=== PATIENT | male | born 2000 | race Caucasian/White ===

== ENCOUNTER 2022-02-03 20:54 | Emergency (ER) | payer OTHER ==
[~2022-02-03] VITALS: Ht 165.1 cm; Wt 77.2 kg
--- NOTE | 2022-02-03 21:16 | PHYS DOC ---
Adult General HPI HPI Patient is an otherwise healthy 21-year-old male who presents with sore throat, headache, fever and body aches. States he is in the and went to an urgent care this morning was tested for flu and Covid which was negative. States he has had his Covid vaccinations. States he took some Tylenol earlier this morning. States he is eating and drinking normally for him. States he is making urine and stool normally for him. 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 Review of Systems Review of Systems Review of systems otherwise unremarkable except noted in HPI Physical Exam Physical Exam Constitutional: Well developed, well nourished, no acute distress, non-toxic appearance. [] HENT: Normocephalic, atraumatic, bilateral external ears normal, oropharynx moist, bilateral posterior oropharyngeal and tonsillar erythema, no oral exudates, nose normal. [] Eyes: conjunctiva normal, no discharge. [] Neck: Normal range of motion, no tenderness, supple, no stridor [] Cardiovascular: Sinus tachycardia Lungs & Thorax: Bilateral breath sounds clear to auscultation [] Abdomen: soft, no tenderness, no masses, no pulsatile masses. [] Skin: Warm, dry, no erythema, no rash. [] Extremities: No tenderness, no cyanosis, no clubbing, ROM intact, no edema. [] Neurologic: Alert and oriented X 3, no focal deficits noted. [] Psychologic: Affect normal, judgement normal, mood normal. [] EKG EKG [] Radiology/Procedures Radiology/Procedures [] Heart Score C/O Chest Pain: No Risk Factors: Risk Factors: DM, Current or recent (<one month) smoker, HTN, HLP, family history of CAD, obesity. Risk Scores: Risk Factors: DM, Current or recent (<one month) smoker, HTN, HLP, family history of CAD, obesity. Course & Med Decision Making Course & Med Decision Making Patient is a otherwise healthy 21-year-old male who presents with sore throat, fever and body aches Vital signs notable for tachycardia, hypertension and fever. Physical exam noted above. Patient does not look ill or toxic at all. Given medications for symptom control. Started on amoxicillin for strep throat given Centor criteria of 5. Discussed symptom control at home. Advised to follow-up with primary care physician on [place]. Gave return precautions to the ED. Patient grateful, verbalized understanding and agreed with plan of discharge. Clover Disclaimer Clover Disclaimer This electronic medical record was generated, in whole or in part, using a voice recognition dictation system. Departure Departure: Impression: Primary Impression: Pharyngitis Additional Impressions: Fever Sore throat Disposition: HOME / SELF CARE / HOMELESS Condition: STABLE Referrals: ZEYAD RIOJAS MD Patient Instructions: Viral and Bacterial Pharyngitis Additional Instructions: Thank you for coming into the emergency department tonight and allowing us to take care of you. Please read the attached information carefully to go over things we discussed. You can continue Tylenol, ibuprofen, Benadryl and [id number] cough medicine such as Delsym as needed. Please take all of your antibiotics as prescribed and until gone. Please be sure to eat at least 3 nutritious meals daily and stay well-hydrated. Please take a One-A-Day vitamin. Please do not go back to work until you have had no fever for full 24 hours without help from Tylenol or ibuprofen. Please follow-up on Saturday with your primary care physician update on your ED visit and set up a follow-up. Please come back with new or concerning symptoms as discussed. Scripts Amoxicillin (AMOXICILLIN) 500 Mg Capsule 1 CAP PO BID for pharyngitis for 10 Days, #18 CAP Prov: JEFF MEREDITH MD 02/03/22 Problem Qualifiers JEFF MEREDITH MD Feb 03, 2022 21:16
[2022-02-03] MEDS ORDERED: ACETAMINOPHEN 500 MG TABLET PO ONE (21:30)
[2022-02-03] MEDS ORDERED: IBUPROFEN 800 MG TABLET. PO ONE (21:30)
[2022-02-03] MEDS ORDERED: AMOXICILLIN 250 MG CAPSULE PO ONE (21:30)
[2022-02-03] MEDS ORDERED: DEXAMETHASONE 4 MG TABLET PO ONE (21:30)
[2022-02-03] MEDS ORDERED: AMOX500C PO (21:36)
[2022-02-03 22:00] VITALS: BP 158/86
== END 2022-02-03 22:00 | disposition home or self-care (01) ==
LOC: ER 20:54
DX: J02.9 Acute pharyngitis, unspecified (principal)
CPT/HCPCS: 99284; J8540